=== PATIENT | female | born 2005 | race Caucasian/White ===

== ENCOUNTER 2023-08-11 13:54 | Outpatient (AMB) | payer OTHER, SELFPAY ==
--- NOTE | 2023-08-11 13:56 | MHC.PC.OV ---
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 Required: No Accompanied by: Self / Same As Patient Allergies No Known Allergies Allergy (Verified 08/11/23 14:12) Medication List - Last Reconciled 08/11/23 by KIMBERLY Butler No Known Home Meds Tobacco use date assessed: 08/11/23 Dental Screening Dental Screen Date: 08/11/23 Did you have a dental visit in the last 12 months?: Yes Did you have a dental problem in the last 6 months where you did not have access to dental care?: No Was dental information given to patient?: Patient has dentist HPI HPI Comments History of Present Illness Details This 17-year-old patient here for establishment of care. Patient states they would like to be called [facility] instead of [facility]. Patient born biological female is interested in transitioning. Patient states past medical history of asthma as a child that they have since outgrew. Patient is up-to-date on their vaccines, due for TD immunization 2024. Patient is not currently taking any medications. Will refer to [facility], and psychiatric services. Patient understands and is agreeable to this plan. 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 1. Little interest or pleasure in doing things: several days 2. Feeling down, depressed, or hopeless: not at all 3. Trouble falling or staying asleep, or sleeping too much: not at all 4. Feeling tired or having little energy: several days 5. Poor appetite or overeating: not at all 6. Feeling bad about yourself - or that you are a failure or have let yourself or your family down: not at all 7. Trouble concentrating on things, such as reading the newspaper or watching television: not at all 8. Moving or speaking so slowly that other people could have noticed. Or the opposite - being so fidgety or restless that you have been moving around a lot more than usual: not at all 9. Thoughts that you would be better off or of hurting yourself in some way: not at all Total score: 2 Depression Screening Interpretation: Negative Depression Screening Done: Yes 40752 - PHQ-9 Billing: Yes Source: Developed by Drs. Roddy Armas, Lynne Florentino, Carlitos Alanis and colleagues, with an educational waldo from [employer]. Thrive Questionnaire Date Thrive assessed: 08/11/23 I am a: Patient What is your living situation today?: I have a steady place to live Within the past 12 months, did the food you bought not last and you didn't have the money to get more?: Never true Within the past 12 months, did you worry whether your food would run out before you got money to buy more?: Never true Do you have trouble paying for medicines?: No Do you have trouble getting transportation to medical appointments?: No Do you have trouble paying your heating and electricity bill?: No Do you have trouble taking care of your child, family member or friend?: No Do you have trouble with day-to-day activities such as bathing, preparing meals, shopping, managing finances, etc.?: No Are you currently unemployed and looking for a job?: No Are you interested in more education?: No Please select the resources that you would like help with: None Currently or been in a relationship where the following occur: no concerns reported THRIVE Score: 0 AUDIT C Alcohol Use Questionnaire (AUDIT-C) 1. How often do you have a drink containing alcohol?: Never 3. How often do you have six or more drinks on one occasion?: Never Total Score: 0 Score Reviewed/Action Taken: Yes STEPHANIE-7 AMB Questionnaire STEPHANIE-7 Date STEPHANIE - 7 assessed: 08/11/23 Feeling nervous, anxious, or on edge: 3 = Nearly every day Not being able to stop or control worryin = Nearly every day Worrying too much about different things: 3 = Nearly every day Trouble relaxin = Several days Being so restless that it is hard to sit still: 0 = Not at all Becoming easily annoyed or irritable: 0 = Not at all Feeling afraid as if something awful might happen: 1 = Several days Total STEPHANIE-7 score (0-4 normal; 5-9 mild; 10-14 moderate; 15-21 severe): 11 Source: Developed by Drs. Roddy Armas, Lynne Florentino, Carlitos Alanis and colleagues, with an educational waldo from [employer]. STEPHANIE-7 Assessment Billing STEPHANIE-7 Assessment Tool: STEPHANIE-7 Assessment 13923 Review of Systems Const Details: Constitutional : No Weight loss, No Fever, No Chills, No Fatigue, No Malaise ENT/Mouth : No sore throat, No Rhinorrhea Eyes: No Eye Pain, No Swelling, No Redness Cardiovascular : No Chest Pain, No SOB, No Dyspnea on Exertion, No Orthopnea, No Edema, No Palpitations Respiratory : No Cough, No Sputum, No Wheezing Neuro : No Weakness, No Numbness, No Dizziness, No Headache Psych : No Anxiety/Panic, No Depression. Denies SI/HI. All other systems reviewed and are negative Physical exam (Primary Care) Vital Signs: Last Vital Signs Pulse 61 08/11/23 14:00 BP 110/62 08/11/23 14:00 Pulse Ox 99 08/11/23 14:00 Oxygen Delivery Method Room Air 08/11/23 14:00 BMI result Body Mass Index 28.2 Tobacco/Smoking Status: Tobacco use Status Tobacco use date assessed 08/11/23 08/11/23 14:02 Patient Tobacco Use Status Never used Tobacco 08/11/23 13:59 Depression Screening Interpretation: Negative Currently or been in a relationship where the following occur: no concerns reported Const Other: Appearance: Alert.? Oriented X3.? No acute distress.? Neck: Normal inspection.? Neck supple.? CVS: Normal heart rate and rhythm.? Pulses normal.? Respiratory: No respiratory distress.? Breath sounds normal.? Skin: Skin warm and dry.? Normal skin color.? Normal skin turgor.? Neuro: Oriented X 3.? No motor deficit.? No sensory deficit. CN 2-12 intact Assessment and Plan Assessment & Plan (1) Gender dysphoria in adult: Comment: Will refer patient to Psychiatry, will refer patient to Endocrinology. Patient has been instructed to contact her insurance company to verify which services that cover. Patient understands this and is agreeable to plan Code(s): F64.0 - Transsexualism Plan Follow-up physical exam in 5 months. Draw labs Orders: Orders Comprehensive Met. Panel Today Z91.89 - Other specified personal risk factors, not elsewhere classified Complete Blood Count Auto Diff Today Z13.0 - Encounter for screening for diseases of the blood and blood-forming organs and certain disorders involving the immune mechanism Vitamin D 25-OH (D2 and D3) Today Z13.21 - Encounter for screening for nutritional disorder Vitamin B6 Today Z13.21 - Encounter for screening for nutritional disorder Vitamin B12 Today Z13.21 - Encounter for screening for nutritional disorder UA CC w/rflx Micro + Cult Today Z13.89 - Encounter for screening for other disorder TSH reflex Free T4 Today Z13.29 - Encounter for screening for other suspected endocrine disorder Referrals Psychiatry Referral F41.9 - Anxiety disorder, unspecified, F64.0 - Transsexualism Endocrinology Referral F64.0 - Transsexualism Coding Level of Care Code Est Pt Level 3 (57030) Diagnoses Gender dysphoria in adult F64.0 Additional Codes STEPHANIE-7 Assessment Billing - STEPHANIE-7 Assessment Tool: STEPHANIE-7 Assessment 03728 ([id number]) Time Spent (min) 30
[2023-08-11 14:00] VITALS: BP 110/62; PULSE 61; O2SAT 99; BMI 28.2
== END 2023-08-11 14:42 | disposition home or self-care (01) ==
PROVIDERS: PCP Nurse Practitioner Primary Care; Visit Provider Nurse Practitioner Primary Care
DX: F64.0 Transsexualism (principal)
CPT/HCPCS: 99203

== ENCOUNTER 2023-08-11 14:40 | Outpatient (REF) | payer OTHER, SELFPAY ==
[2023-08-11 15:59] LABS: MANUAL DIFF FLAG NO
[2023-08-11 16:08] LABS: Basophils Absolute Auto 0.1 X10*3/uL (0.0-0.2); Basophils Percent Auto 0.7 % (0-2); Eosinophils Absolute Auto 0.1 X10*3/uL (0.0-0.4); Eosinophils Percent Auto 1.1 % (0-4); Hematocrit 40.6 % (37.0-47.0); Hemoglobin 13.8 g/dl (12.0-16.0); Imm Gran Abs Auto 0.02 X10*3/uL (0.00-0.03); Imm Gran Pct Auto 0.2 % (0.0-0.4); Lymphocytes Absolute Auto 2.6 X10*3/uL (1.2-4.9); Lymphocytes Percent Auto 30.1 % (20-40); Mean Corpuscular Hemoglobin 31.2 pg (27.0-33.0); Mean Corpuscular Volume 91.6 fL (80.0-98.0); Mean Platelet Volume 10.4 fL (9.4-12.3); Monocytes Absolute Auto 0.5 X10*3/uL (0.1-1.2); Monocytes Percent Auto 5.9 % (2-11); Neutrophils Absolute Auto 5.4 x10*3/uL (2.0-8.3); Platelet Count 369 X10*3/uL (160-400); Red Blood Count 4.43 X10*6/uL (4.20-5.50); Red Cell Distribution Width 12.4 % (11.0-16.0); White Blood Count 8.7 X10*3/uL (4.8-10.8)
[2023-08-11 16:13] LABS: Appearance Urine Clear; Color Urine Yellow; Glucose Urine UA Negative (Negative); Leukocyte Esterase Urine Negative (Negative); Nitrite Urine Negative (Negative); PH 6.5 (5.0-9.0); Specific Gravity - Urine 1.025 (1.005-1.025); UMIC TRIGGER UACC YES; Urine Blood Moderate (2+) (Negative); Urine Ketones Negative (Negative); Urine Protein Negative (Neg-Trace)
[2023-08-11 16:21] LABS: Bacteria Urine Trace (None Seen); Hyaline Casts Urine 0-2 /LPF (0-2); WBC Urine 0-5 /HPF (0-5)
[2023-08-11 16:43] LABS: Alanine Aminotransferase 13 U/L (0-31); Albumin Level 4.2 g/dL (3.5-5.0); Alkaline Phosphatase 52 U/L (39-117); Anion Gap 11 (12-20); Aspartate Amino Transferase 13 U/L (5-31); Bilirubin Total 0.3 mg/dL (0.0-1.0); Blood Urea Nitrogen 15 mg/dL (9-16); Calcium 9.2 mg/dL (8.4-10.2); Carbon Dioxide 27 mmol/L (22-29); Chloride 107 mmol/L (96-108); Estimated Glomerular Filt Rate > 60; Glucose Random 107 mg/dL (60-115); Potassium 3.9 mmol/L (3.3-5.1); Sodium 141 mmol/L (135-145); Total Protein 6.8 g/dL (6.5-8.0)
[2023-08-11 16:58] LABS: TSH reflex Free T4 0.95 uIU/mL (0.32-4.0)
[2023-08-11 17:04] LABS: Vitamin B12 728 pg/mL (200-900)
[2023-08-15 15:14] LABS: Vitamin D 25-OH, D2 <4 ng/mL; Vitamin D 25-OH, D3 13 ng/mL; Vitamin D 25-OH, Total 13 ng/mL (30-100)
[2023-08-15 17:03] LABS: Vitamin B6 7.7 ng/mL (2.1-21.7)
== END 2023-08-11 14:41 | disposition home or self-care (01) ==
LOC: HO.HMGCLDS 14:40
PROVIDERS: PCP Nurse Practitioner Primary Care; Visit Provider Nurse Practitioner Primary Care
DX: Z13.21 Encounter for screening for nutritional disorder (principal); Z13.29 Encounter for screening for other suspected endocrine disorder; Z13.0 Encounter for screening for diseases of the blood and blood-forming organs and certain disorders involving the immune mechanism; Z91.89 Other specified personal risk factors, not elsewhere classified
CPT/HCPCS: 36415; 80053; 81001; 82306; 82607; 84207; 84443; 85025

== ENCOUNTER 2023-12-06 10:32 | Outpatient (AMB) | payer OTHER, SELFPAY ==
--- NOTE | 2023-12-06 10:42 | MHC.PC.OV ---
Vital Signs 12/06/23 10:44 Height 5 ft 1 in Weight 148 lb BMI 28.0 BP 128/78 Blood Pressure Location Rt brachial Position Sitting Pulse 98 Pulse Source Pulse Oximeter Pulse Oximetry (%) 98 Oxygen Delivery Method Room Air Intake Visit Reasons: Annual PE Intake Note: pt is here for annual PE. No pap done Allergies No Known Allergies Allergy (Verified 12/06/23 10:43) Tobacco use date assessed: 12/06/23 Dental Screening Dental Screen Date: 12/06/23 Did you have a dental visit in the last 12 months?: Yes Did you have a dental problem in the last 6 months where you did not have access to dental care?: No Was dental information given to patient?: Patient has dentist HPI HPI Comments History of Present Illness Details Patient is 18-year-old biological female in today for physical exam. Previous appointment patient was referred to psychiatric services as well as [facility] Endocrinology as they are interested in transitioning from female to male Patient is up-to-date on Tdap. Patient is a declining OBGYN. Patient is low in vitamin-D, has been taking vitamin D3 supplement for the past 3 months. Will redraw. Patient did not establish care from previous visit with psychiatry or therapy. They state that there anxiety and depression has improved since starting school in focusing on their school work. Patient also works part-time at local [employer]. 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 How often do you have a drink containing alcohol?: Never 3. How often do you have six or more drinks on one occasion?: Never Total Score: 0 STEPHANIE-7 AMB Questionnaire STEPHANIE-7 Date STEPHANIE - 7 assessed: 08/11/23 Source: Developed by Drs. Roddy Armas, Lynne Florentino, Carlitos Alanis and colleagues, with an educational waldo from [employer]. Review of Systems Const All systems reviewed & are unremarkable except as noted in HPI and below Physical exam (Primary Care) Vital Signs: Last Vital Signs Pulse 89 12/06/23 10:44 BP 108/80 12/06/23 10:44 Pulse Ox 98 12/06/23 10:44 Oxygen Delivery Method Room Air 12/06/23 10:44 Care Plan Goal for BP management: Blood pressure is controlled. BMI result Body Mass Index 22.7 Tobacco/Smoking Status: Tobacco use Status Tobacco use date assessed 08/11/23 12/06/23 10:44 Patient Tobacco Use Status Never used Tobacco 12/06/23 10:44 Thrive Assessment: Date of Thrive Assessment Date Thrive assessed 08/11/23 12/06/23 10:44 Const General: cooperative and no acute distress Orientation/consciousness: patient oriented x3 Limitations: no limitations HENMT Head: Yes normal to inspection and Yes normocephalic Ears: TM's normal bilaterally General nose exam: Normal external nose present Teeth and gingiva: dentition normal Eyes Conjunctivae: conjunctivae normal Sclerae: sclerae normal Pupils: Equal, round and reactive pupils present EOM: EOMs intact bilaterally Direct Ophthalmoscopy: normal light reflex and no photophobia Neck Neck: Yes normal visual inspection and Yes full ROM Resp Effort & Inspection: normal respiratory effort Auscultation: clear to auscultation bilaterally Cardio Rate: regular rate Rhythm: regular rhythm Heart sounds: S1 normal heart sound present and S2 normal heart sound present Peripheral pulses: Peripheral pulses 2+ throughout GI Inspection: Yes normal to inspection Auscultation: normal bowel sounds Rectal Exam - Female: deferred General: Yes no CVA tenderness Back/Spine/Pelvis Back: no CVA tenderness Skin General skin exam: no rashes or lesions noted Neuro General: patient oriented x3 Cranial nerves: Yes Equal, round and reactive pupils present Cognition (Neuro): normal cognition Gait exam (Neuro): Normal gait present Motor exam (neuro): 5/5 motor strength present throughout and Pronator motor function not present Romberg Test: Negative Extrem General: Yes normal to inspection Psych Thought process: Normal thought process present Thought content: Normal thought content present, suicidality and no homicidality Insight: Good insight present (Psych) Judgement: Good judgement present (Psych) Results Reviewed Results Reviewed: Sodium 141 135-145 mmol/L Potassium 3.9 3.3-5.1 mmol/L CL 107 96-108 mmol/L CO2 27 22-29 mmol/L Gap 11 L 12-20 BUN 15 9-16 mg/dL Creat 0.75 0.5-1.4 mg/dL EGFR > 60 NOTE: For -Vietnamese individuals, multiply the result by 1.210. Chronic Kidney Disease: Estimated GFR < 60 mL/min/1.73m2 Severe Kidney Disease: Estimated GFR < 15 mL/min/1.73m2 Glucose, Random 107 60-115 mg/dL CA 9.2 8.4-10.2 mg/dL Total Bili 0.3 0.0-1.0 mg/dL AST (GOT) 13 5-31 U/L ALT (GPT) 13 0-31 U/L Protein, Total 6.8 6.5-8.0 g/dL Alb 4.2 3.5-5.0 g/dL Alk Phos 52 39-117 U/L TSH 0.95 0.32-4.0 uIU/mL Assessment and Plan Assessment & Plan (1) Physical exam: Comment: Previous appointment patient was referred to psychiatric services as well as [facility] Endocrinology as they are interested in transitioning from female to male Patient is up-to-date on Tdap. Patient is a declining OBGYN. Patient is low in vitamin-D, has been taking vitamin D3 supplement for the past 3 months. Will redraw. Patient did not establish care from previous visit with psychiatry or therapy. They state that there anxiety and depression has improved since starting school in focusing on their school work. Patient also works part-time at local [employer]. Code(s): Z00.00 - Encounter for general adult medical examination without abnormal findings (2) Anxiety: Comment: Patient states this is improved since starting school full-time. Code(s): F41.9 - Anxiety disorder, unspecified (3) Gender dysphoria in adult: Comment: Will refer patient to Psychiatry, will refer patient to Endocrinology. Patient has been instructed to contact her insurance company to verify which services that cover. Patient understands this and is agreeable to plan Code(s): F64.0 - Transsexualism (4) Vitamin D deficiency: Comment: Will redraw. Patient has been taking vitamin D3 2000 per day Code(s): E55.9 - Vitamin D deficiency, unspecified Plan draw labs Orders: Orders Complete Blood Count Auto Diff Today Z13.0 - Encounter for screening for diseases of the blood and blood-forming organs and certain disorders involving the immune mechanism Basic Metabolic Panel Today Z91.89 - Other specified personal risk factors, not elsewhere classified Vitamin D 25-OH (D2 and D3) Today Z13.21 - Encounter for screening for nutritional disorder Coding Level of Care Code Est Pt Prev Care 18-39y(27939) Diagnoses Physical exam Z00.00 Anxiety F41.9 Gender dysphoria in adult F64.0 Vitamin D deficiency E55.9 Time Spent (min) 27
[2023-12-06 10:44] VITALS: BP 128/78; PULSE 98; O2SAT 98; BMI 28.0
== END 2023-12-06 13:29 | disposition home or self-care (01) ==
PROVIDERS: PCP Nurse Practitioner Primary Care; Visit Provider Nurse Practitioner Primary Care
DX: Z00.00 Encounter for general adult medical examination without abnormal findings (principal); F41.9 Anxiety disorder, unspecified; F64.0 Transsexualism; E55.9 Vitamin D deficiency, unspecified
CPT/HCPCS: 99395

== ENCOUNTER 2024-03-27 11:35 | Outpatient (AMB) | payer OTHER, SELFPAY ==
--- NOTE | 2024-03-27 11:50 | AM.OFFWIN_ITS ---
Intake Vital Signs 03/27/24 11:54 Height 5 ft 1 in Weight 157 lb BMI 29.7 BP 120/80 Blood Pressure Location Lt brachial Position Sitting Pulse 99 Pulse Source Pulse Oximeter Pulse Oximetry (%) 98 Oxygen Delivery Method Room Air Intake Visit Reasons: EP ? UTI Intake Note: Patient here for pain when urinating, frequent urination on and off and lower abdominal pain. Patient Tobacco Use Status: Never used Tobacco Allergies No Known Allergies Allergy (Verified 03/27/24 11:55) Do you need a note to return to daycare/school/sports/work: Yes HPI HPI Comments History of Present Illness Details 18 y/o female patient who presents to [facility] walk [facility] with c/ urinary symptoms since last Tuesday. Reports urinary frequency, urgency and dysuria. She endorse lower back pain and mild pelvic cramping. Denies vaginal symptoms. Denies fevers, chills, nausea or vomiting. 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 General: Yes CVA tenderness Back/Spine/Pelvis Back: CVA tenderness Neuro General: patient oriented x3, gait normal and moves all extremities Psych Speech and movement: Normal speech and movement present Assessment & Plan Assessment & Plan (1) Cystitis: Code(s): N30.90 - Cystitis, unspecified without hematuria Plan: In office Urinalysis positive for Ethel and Nit Ordered Abx for 7 days. Acetaminophen for pain relief Hydrate well with plenty of water. Medications: New ciprofloxacin HCl 500 mg PO BID 7 days 14 tabs 0RF N30.90 - Cystitis, unspecified without hematuria Coding Level of Care Code Est Pt Level 3 (25141) Diagnoses Cystitis N30.90 Time Spent (min) 15
[2024-03-27 11:54] VITALS: BP 120/80; PULSE 99; O2SAT 98; BMI 29.7
== END 2024-03-27 12:20 | disposition home or self-care (01) ==
PROVIDERS: PCP Nurse Practitioner Primary Care; Visit Provider Nurse Practitioner Family
DX: Z13.9 Encounter for screening, unspecified (principal); N30.90 Cystitis, unspecified without hematuria

== ENCOUNTER → 2024-03-27 11:35 | Outpatient (BNVA) | payer OTHER, SELFPAY | PROVIDERS: PCP Nurse Practitioner Primary Care; Visit Provider Nurse Practitioner Family | DX: N30.90 Cystitis, unspecified without hematuria (principal) | CPT/HCPCS: 81003 ==

== ENCOUNTER → 2024-05-29 10:10 | Outpatient (BNVA) | payer OTHER, SELFPAY | PROVIDERS: PCP Nurse Practitioner Primary Care; Visit Provider Internal Medicine | DX: Z28.9 Immunization not carried out for unspecified reason (principal) | CPT/HCPCS: 90471; 90656 ==

== ENCOUNTER 2025-06-03 14:24 | Outpatient (AMB) | payer OTHER, SELFPAY ==
--- NOTE | 2025-06-03 14:26 | A.OFFPC_ITS ---
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 Is last menstrual period known: Yes Last menstrual period: 05/09/25 Allergies No Known Allergies Allergy (Verified 06/03/25 15:02) Medication List - Last Reconciled 06/03/25 by Jennifer Hughes MD No Known Home Meds Tobacco use date assessed: 06/03/25 Dental Screening Dental Screen Date: 06/03/25 Did you have a dental visit in the last 12 months?: Yes Did you have a dental problem in the last 6 months where you did not have access to dental care?: No Was dental information given to patient?: Patient has dentist [facility] Medical History No pertinent past medical history Surgical History No pertinent past surgical history Social History (Updated 06/03/25 @ 15:15 by Jennifer Hughes MD) Household Members: Other Household Members Other:: lives with mother and brother Both parents involved: Yes Housing: Condominium Alcohol intake: never Patient Tobacco Use Status: Never used Tobacco e-Cigarette/Vaping Use: Never Used Current occupational status: employed and student 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 1. Little interest or pleasure in doing things: not at all 2. Feeling down, depressed, or hopeless: not at all 3. Trouble falling or staying asleep, or sleeping too much: not at all 4. Feeling tired or having little energy: not at all 5. Poor appetite or overeating: not at all 6. Feeling bad about yourself - or that you are a failure or have let yourself or your family down: not at all 7. Trouble concentrating on things, such as reading the newspaper or watching television: not at all 8. Moving or speaking so slowly that other people could have noticed. Or the opposite - being so fidgety or restless that you have been moving around a lot more than usual: not at all 9. Thoughts that you would be better off or of hurting yourself in some way: not at all Total score: 0 Depression Screening Interpretation: Negative Depression Screening Done: Yes 15973 - PHQ-9 Billing: Yes Source: Developed by Drs. Roddy Armas, Lynne Florentino, Carlitos Alanis and colleagues, with an educational waldo from [email or web address]. Thrive Questionnaire Date Thrive assessed: 06/03/25 I am a: Patient What is your living situation today?: I have a place to live, but I am worried about losing it in the future Within the past 12 months, did the food you bought not last and you didn't have the money to get more?: Sometimes True Within the past 12 months, did you worry whether your food would run out before you got money to buy more?: Sometimes True Do you have trouble paying for medicines?: No Do you have trouble getting transportation to medical appointments?: No Do you have trouble paying your heating and electricity bill?: No Do you have trouble taking care of your child, family member or friend?: No Do you have trouble with day-to-day activities such as bathing, preparing meals, shopping, managing finances, etc.?: No Are you currently unemployed and looking for a job?: No Are you interested in more education?: No Please select the resources that you would like help with: None Currently or been in a relationship where the following occur: No concerns reported THRIVE Score: 3 AUDIT C Alcohol Use Questionnaire (AUDIT-C) 1. How often do you have a drink containing alcohol?: Never Total Score: 0 STEPHANEI-7 AMB Questionnaire STEPHANIE-7 Date STEPHANIE - 7 assessed: 06/03/25 Feeling nervous, anxious, or on edge: 1 = Several days Not being able to stop or control worryin = Not at all Worrying too much about different things: 0 = Not at all Trouble relaxin = Several days Being so restless that it is hard to sit still: 0 = Not at all Becoming easily annoyed or irritable: 0 = Not at all Feeling afraid as if something awful might happen: 0 = Not at all Total STEPHANIE-7 score (0-4 normal; 5-9 mild; 10-14 moderate; 15-21 severe): 2 Source: Developed by Drs. Roddy Armas, Lynne Florentino, Carlitos Alanis and colleagues, with an educational waldo from [email or web address]. Physical exam (Primary Care) Vital Signs: Last Vital Signs Temp 98.0 F 06/03/25 14:52 Pulse 82 06/03/25 14:52 Resp 16 06/03/25 14:52 BP 108/80 06/03/25 14:52 Pulse Ox 98 06/03/25 14:52 Oxygen Delivery Method Room Air 06/03/25 14:52 BMI result Body Mass Index 34.4 Tobacco/Smoking Status: Tobacco use Status Tobacco use date assessed 06/03/25 06/03/25 14:29 Patient Tobacco Use Status Never used Tobacco 06/03/25 14:29 e-Cigarette/Vaping Use Never Used 06/03/25 14:29 PHQ-9: PHQ-9 Score PHQ-9: Total score 0 06/03/25 14:29 Depression Screening Interpretation: Negative Thrive Assessment: Date of Thrive Assessment Date Thrive assessed 06/03/25 06/03/25 14:29 Currently or been in a relationship where the following occur: No concerns reported Office Procedures Flu Questionnaire Does the patient have a severe egg allergy?: No Does the patient have severe life threatening allergies?: No Does the patient have a fever or illness today?: No Has the patient ever had Guillain-[place] Syndrome?: No Has the patient ever had any past reaction to a flu shot?: No Immunizations Fluarix [id number] (PF) 45 mcg (15 mcg x 3)/0.5 mL IM syringe Performing Provider: Jennifer Hughes MD [place] [facility] [place] [facility] Administered by: Romelia Huffman CMA on 06/03/25 15:01 Dose Route Admin Location Dispensed Lot Number Expiration Date [facility] [employer] 0.5 mL IM Left Deltoid 0.5 mL [id number] 12/10/25 [id number] [employer] VIS Given Date VIS Provided VIS Publication Date 06/03/25 Single Vaccine 24 Eligibility Eligibility Date Funding Source Not [facility] Eligible 06/03/25 Private Coding Level of Care Code Est Pt Prev Care [id number]) Diagnoses Vitamin D deficiency E55.9 Annual visit for general adult medical examination with abnormal findings Z00.01 Additional Codes PHQ-9 - 96728 - PHQ-9 Billing: Yes ([id number]) Assessment & Plan Assessment & Plan (1) Vitamin D deficiency: Comment: Will redraw. Patient has been taking vitamin D3 2000 per day Code(s): E55.9 - Vitamin D deficiency, unspecified Category: Medical (2) Annual visit for general adult medical examination with abnormal findings: Code(s): Z00.01 - Encounter for general adult medical examination with abnormal findings Orders: Orders Lipid Panel Today E55.9 - Vitamin D deficiency, unspecified, Z13.220 - Encounter for screening for lipoid disorders Vitamin D 25-OH Total Today E55.9 - Vitamin D deficiency, unspecified, Z13.220 - Encounter for screening for lipoid disorders Influenza [id number] Immunization Today Z23 - Encounter for immunization
[2025-06-03 14:52] VITALS: BP 108/80; PULSE 82; RESP 16; TEMP 36.7; O2SAT 98; BMI 34.4
== END 2025-06-03 15:24 | disposition home or self-care (01) ==
LOC: HO.HMCC 14:24
PROVIDERS: Visit Provider Internal Medicine
DX: Z23 Encounter for immunization (principal)

== ENCOUNTER → 2025-06-03 14:24 | Outpatient (BNVA) | payer OTHER, SELFPAY | PROVIDERS: Visit Provider Internal Medicine | DX: Z00.01 Encounter for general adult medical examination with abnormal findings (principal); E55.9 Vitamin D deficiency, unspecified; Z13.31 Encounter for screening for depression; Z13.39 Encounter for screening examination for other mental health and behavioral disorders; Z23 Encounter for immunization | CPT/HCPCS: 90471; 90656; 96127; 99395 ==